=== PATIENT | male | born 1960 | race Caucasian/White ===

== ENCOUNTER 2020-03-06 09:41 | Emergency (ER) | payer MEDICAID ==
[~2020-03-06] VITALS: Ht 177.8 cm; Wt 75.8 kg
[2020-03-06] MEDS ORDERED: RIVA10TA PO (10:07)
[2020-03-06] MEDS ORDERED: IBUPROFEN 600MG TABLET PO STA (10:20)
[2020-03-06 10:24] VITALS: BP 137/88
== END 2020-03-06 13:35 | disposition home or self-care (01) ==
LOC: ER 09:41
DX: S32.010A Wedge compression fracture of first lumbar vertebra, initial encounter for closed fracture (principal); S32.020A Wedge compression fracture of second lumbar vertebra, initial encounter for closed fracture; S32.040A Wedge compression fracture of fourth lumbar vertebra, initial encounter for closed fracture; Y04.2XXA Assault by strike against or bumped into by another person, initial encounter; Y93.89 Activity, other specified; Y92.89 Other specified places as the place of occurrence of the external cause; Z86.718 Personal history of other venous thrombosis and embolism
CPT/HCPCS: 72100; 99283